=== PATIENT | female | born 1995 | race African-American/Black ===

== ENCOUNTER 2024-11-21 19:51 | Emergency (ER) | payer MEDICAID ==
[~2024-11-21] VITALS: Ht 177.8 cm; Wt 99.0 kg
[2024-11-21 19:52] VITALS: O2SAT 98
[2024-11-21] MEDS: KETOROLAC 15MG/ML VIAL IM ONE (21:30)
[2024-11-21] MEDS: METOCLOPRAMIDE HCL 10MG TABLET PO ONE (21:30)
[2024-11-21] MEDS: DIPHENHYDRAMINE 25MG CAPSULE PO ONE (21:30)
[2024-11-21] MEDS ORDERED: NAPR-1176 MT (22:54)
[2024-11-21 23:39] VITALS: BP 123/68; PULSE 60; RESP 16; TEMP 37; O2SAT 100
== END 2024-11-21 23:39 | disposition home or self-care (01) ==
LOC: ER 19:51
DX: R51.9 Headache, unspecified (principal); Z79.1 Long term (current) use of non-steroidal anti-inflammatories (NSAID); Z79.899 Other long term (current) drug therapy
CPT/HCPCS: 96372; 99283; Q0163; J8597; J1885; Z7610